=== PATIENT | male | born 2000 | race Two or more races ===

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

== ENCOUNTER 2022-01-24 15:39 | Emergency (ER) | payer OTHER ==
[~2022-01-24] VITALS: Ht 185.4 cm; Wt 122.0 kg
[2022-01-24] MEDS ORDERED: NORVASC10 MG (16:06)
[2022-01-24] MEDS ORDERED: BENICAR20 MG PO (16:07)
== END 2022-01-24 20:10 | disposition home or self-care (01) ==
LOC: ER 15:39
DX: S91.322A Laceration with foreign body, left foot, initial encounter (principal); X58.XXXA Exposure to other specified factors, initial encounter; Y93.9 Activity, unspecified; Y92.89 Other specified places as the place of occurrence of the external cause; Y99.9 Unspecified external cause status

== ENCOUNTER 2022-06-02 09:53 | Emergency (ER) | payer OTHER ==
[~2022-06-02] VITALS: Ht 185.4 cm; Wt 122.0 kg
[~2022-06-02 09:53] MED LIST: BENICAR20 MG PO; NORVASC10 MG
[2022-06-02] MEDS ORDERED: ORPHENADRINE C100 MG PO (13:36)
[2022-06-02] MEDS ORDERED: DICLOFENAC POTA50 MG PO (13:36)
== END 2022-06-02 13:48 | disposition home or self-care (01) ==
LOC: ER 09:53
DX: S33.5XXA Sprain of ligaments of lumbar spine, initial encounter (principal); X58.XXXA Exposure to other specified factors, initial encounter; Y93.89 Activity, other specified; Y92.89 Other specified places as the place of occurrence of the external cause; Y99.9 Unspecified external cause status